=== PATIENT | female | born 1980 | race Hispanic/Latino ===

== ENCOUNTER 2017-03-23 19:06 | Emergency (ER) | payer OTHER ==
[2017-03-23] MEDS ORDERED: Bupivacaine 0.5% 10 ML VIAL ONE (19:27)
[2017-03-23] MEDS ORDERED: Adacel (T-DAP) 0.5 ML VIAL ONE (20:02)
[2017-03-23] MEDS ORDERED: Bacitracin Zinc 1 Packet ONE (20:21)
--- NOTE | 2017-03-24 07:38 | RAD ---
PORTABLE LEFT RING FINGER THREE VIEWS: 03/23/17 HISTORY: Laceration to the left ring finger and unable to remove ring due to swelling. FINDINGS/IMPRESSION: No definite fracture or dislocation is seen. The ring obscures a portion of the proximal phalanx of the fourth digit. POS: [facility]
== END 2017-03-23 20:49 | disposition home or self-care (01) ==
LOC: NAV ERS 19:06
DX: S61.225A Laceration with foreign body of left ring finger without damage to nail, initial encounter (principal); F32.9 Major depressive disorder, single episode, unspecified; F41.9 Anxiety disorder, unspecified; Z79.899 Other long term (current) drug therapy
CPT/HCPCS: 12001; 90471; 90715; J3490

== ENCOUNTER 2020-03-27 15:06 | Outpatient (CLI) | payer OTHER ==
--- NOTE | 2020-03-27 15:33 | RAD ---
EXAM: 5 views of the lumbosacral spine HISTORY: Low back pain COMPARISON: None FINDINGS: 4 views of the lumbosacral spine shows normal height and alignment of the vertebral bodies and intervertebral discs without fracture or subluxation. No significant degenerative changes are seen. No pars defects are seen in the oblique images. The sacroiliac joints are unremarkable. IMPRESSION: No significant lumbar spine abnormality.
--- NOTE | 2020-03-27 15:33 | RAD ---
EXAM: 3 views of the sacrum/coccyx HISTORY: Sacral/coccygeal pain COMPARISON: None FINDINGS: 3 views of the sacrum/coccyx shows no evidence of displaced sacral or coccygeal fracture. T he sacral alae are symmetric. The sacroiliac joints and pubic symphysis are unremarkable. IMPRESSION: No evidence of sacral or coccygeal fracture.
== END 2020-03-27 15:07 | disposition home or self-care (01) ==
LOC: NAV RAD 15:06
PROVIDERS: ATTEND Nurse Practitioner Adult Health
DX: M54.5 Low back pain (principal)
CPT/HCPCS: 72110; 72220